=== PATIENT | female | born 1980 | race Caucasian/White ===

== ENCOUNTER 2020-04-20 08:35 | Outpatient (AMBR) | payer MEDICARE, MEDICAID, SELFPAY ==
--- NOTE | 2020-03-23 12:24 | PT.ODAYNRPT ---
PT Outpatient Daily Note Date of Service: 03/23/20 OP Daily Note Visit Reasons: cva Outpatient Physical Therapy Treatment Date: 03/23/20 Subjective: Pt feels stronger. Pt stated that she still has difficulty with steps and will like to work on it. Objective: Please see flow chart for list of ther ex performed Assessment: tolerate exercises with minimal pain Plan: Continue with PT Length of Time (minutes) of Treatment: 30 Minutes Office Procedures PT Procedures PT Date of Service: 03/23/20 Therapeutic Exercise 30 minutes: Yes
--- NOTE | 2020-03-26 11:44 | PTNOTE_ITS ---
PT Outpatient Daily Note Date of Service: 03/26/20 OP Daily Note Visit Reasons: cva Outpatient Physical Therapy Treatment Date: 03/26/20 Subjective: pt came in with no complaints and doing ok upon visit. Objective: see flow sheet. Assessment: pt ambulates with SPC. pt does leave the SPC to the side and ambulates short distances around the gym area. pt needs seated rest breaks in between the exercises. pt was able to fully step onto the step stair case with FWB on BLE. she does use the hand rails. she was able to complete both forward and lateral step ups. she did well but needs more strengthening as it fatigues her. pt also has poor balance as noted during her SLS. she was able to barely lift her RLE for a few seconds before she has to step down with it. Plan: continue POC per PT. Length of Time (minutes) of Treatment: 30 Minutes GUEST RELATIONS RECEPTIONIST Service Modifier Method I: Divide the number of min of care provided by the GUEST RELATIONS RECEPTIONIST/PAULA by the total min of care provided then multiply by 100. If greater than 11 percent modifier is required. Method II: Divide the total time of care provided to patient by 10 (round to the nearest whole number) and add 1 min. to set the minimum time requirement. If treatment total was 60 min., then 10% of 6 min Did GUEST RELATIONS RECEPTIONIST provide more than 10% of the care?: Yes PT CQ modifier applied: CQ Modifier applied Office Procedures PT Procedures PT Date of Service: 03/23/20 Therapeutic Exercise 30 minutes: Yes PT Procedures PT Date of Service: 03/26/20 Therapeutic Exercise 30 minutes: Yes
--- NOTE | 2020-03-31 15:38 | PT.ODAYNRPT ---
PT Outpatient Daily Note Date of Service: 03/31/20 OP Daily Note Visit Reasons: [facility]va Outpatient Physical Therapy Treatment Date: 03/31/20 Subjective: Pt is feeling stronger and wants to continue to progress with increase exercise reps. Pt stated that walking longer is getting easier for her. Objective: Please see flow chart for list of ther ex performed Assessment: tolerate exercises with minimal pain Plan: Continue with PT Length of Time (minutes) of Treatment: 30 Minutes Office Procedures PT Procedures PT Date of Service: 03/23/20 Therapeutic Exercise 30 minutes: Yes PT Procedures PT Date of Service: 03/26/20 Therapeutic Exercise 30 minutes: Yes PT Procedures PT Date of Service: 03/31/20 Therapeutic Exercise 30 minutes: Yes
--- NOTE | 2020-04-02 15:58 | PT.ODAYNRPT ---
PT Outpatient Daily Note Date of Service: 04/02/20 OP Daily Note Visit Reasons: cva Outpatient Physical Therapy Treatment Date: 04/02/20 Subjective: Pt doesn't trust the left leg yet. Pt still has difficulty putting weight on the legs especially with prolonged walking. Pt mention that her overall endurance is much better. Objective: Please see flow chart for list of ther ex performed Assessment: tolerate exercises; difficulty with SLS with noted imbalance after a few reps. Pt continues to excessively use left hip flexors to clear the foot. less difficulty with stairs Plan: Continue with PT Length of Time (minutes) of Treatment: 30 Minutes Office Procedures PT Procedures PT Date of Service: 03/23/20 Therapeutic Exercise 30 minutes: Yes PT Procedures PT Date of Service: 03/26/20 Therapeutic Exercise 30 minutes: Yes PT Procedures PT Date of Service: 03/31/20 Therapeutic Exercise 30 minutes: Yes PT Procedures PT Date of Service: 04/02/20 Therapeutic Exercise 30 minutes: Yes
--- NOTE | 2020-04-06 09:39 | PT.ODS1RPT ---
PT OP Progress/Discharge Note Date of Service: 04/06/20 Progress Note/DC Note Progress Note/Discharge Note: Progress Note Patient Information Visit Reasons: cva Medical Diagnosis: I63.9 Treatment Dx #1: Left UE Weakness Treatment Dx #2: Abnormal Gait Service Continue Service or Discharge: Continue Service Certification Date Certification Dates: 04/06/20 to 07/05/20 Status Subjective: Pt mention that she feels stronger and notice her endurance a lot better. Pt is walking now with and without her cane depends on her duration is when she will use the cane. Pt still notice balance issue with uneven surfaces and stairs/steps are getting easier. Pt has been able to perform light ADLs and take care of her kids with less limitation. Objective: Left Shoulder AROM Flexion: 100 deg Abduction: 95 deg External Rotation: 90 deg Internal Rotation: 60 deg Left Shoulder MMTs: grossly 3/5 Left Elbow MMTs: grossly 3+/5 Left Wrist MMTs: grossly 3+/5 Left Le MMTs: grossly 3+/5 SLS: 3 sec with use of BUE Assessment: Pt demonstrate improvement with overall mobility and strength of the left side allowing her to ambulate, perform light ADLs, chores, and lifting with less limitation. Pt also noted to have improvement with her endurance allowing her to do more exercises and reps without resting as well as performing longer activities at home with less rest. Pt has not met set goals yet and will continue to benefit from physical therapy, thank you for your referrals. Plan: Continue with PT/POC and add 8 sessions (2 x wk for 4 wks) Office Procedures PT Procedures PT Date of Service: 03/23/20 Therapeutic Exercise 30 minutes: Yes PT Procedures PT Date of Service: 03/26/20 Therapeutic Exercise 30 minutes: Yes PT Procedures PT Date of Service: 03/31/20 Therapeutic Exercise 30 minutes: Yes PT Procedures PT Date of Service: 04/02/20 Therapeutic Exercise 30 minutes: Yes PT Procedures PT Date of Service: 04/06/20 Therapeutic Activity 15 minutes: Yes Therapeutic Exercise 30 minutes: Yes
--- NOTE | 2020-04-09 10:09 | PT.ODAYNRPT ---
PT Outpatient Daily Note Date of Service: 04/09/19 OP Daily Note Visit Reasons: cva Outpatient Physical Therapy Treatment Date: 04/09/20 Subjective: Pt mention that she feels stronger and more energy to do things around the house. Pt is walking longer with less limitation. Objective: Please see flow chart for list of ther ex performed Assessment: tolerate exercises with minimal pain; overall endurance continues to improve require less rest break throughout PT session Plan: Continue with PT Length of Time (minutes) of Treatment: 30 Minutes Office Procedures PT Procedures PT Date of Service: 03/23/20 Therapeutic Exercise 30 minutes: Yes PT Procedures PT Date of Service: 03/26/20 Therapeutic Exercise 30 minutes: Yes PT Procedures PT Date of Service: 03/31/20 Therapeutic Exercise 30 minutes: Yes PT Procedures PT Date of Service: 04/02/20 Therapeutic Exercise 30 minutes: Yes PT Procedures PT Date of Service: 04/06/20 Therapeutic Activity 15 minutes: Yes Therapeutic Exercise 30 minutes: Yes PT Procedures PT Date of Service: 04/09/20 Therapeutic Exercise 30 minutes: Yes
--- NOTE | 2020-04-15 16:17 | PT.ODAYNRPT ---
PT Outpatient Daily Note Date of Service: 04/15/20 OP Daily Note Visit Reasons: cva Outpatient Physical Therapy Treatment Date: 04/15/20 Subjective: Pt's walking better and notice more energy lately. Objective: Please see flow chart for list of ther ex performed Assessment: tolerate exercises with minimal pain Plan: Continue with PT Length of Time (minutes) of Treatment: 30 Minutes Office Procedures PT Procedures PT Date of Service: 03/23/20 Therapeutic Exercise 30 minutes: Yes PT Procedures PT Date of Service: 03/26/20 Therapeutic Exercise 30 minutes: Yes PT Procedures PT Date of Service: 03/31/20 Therapeutic Exercise 30 minutes: Yes PT Procedures PT Date of Service: 04/02/20 Therapeutic Exercise 30 minutes: Yes PT Procedures PT Date of Service: 04/06/20 Therapeutic Activity 15 minutes: Yes Therapeutic Exercise 30 minutes: Yes PT Procedures PT Date of Service: 04/09/20 Therapeutic Exercise 30 minutes: Yes PT Procedures PT Date of Service: 04/15/20 Therapeutic Exercise 30 minutes: Yes
--- NOTE | 2020-04-17 09:43 | PT.ODAYNRPT ---
PT Outpatient Daily Note Date of Service: 04/17/20 OP Daily Note Visit Reasons: cva Outpatient Physical Therapy Treatment Date: 04/17/20 Subjective: Pt mention that her weakness is better. Pt wants to work more on her hand and shoulder today. Pt feels that she has some feeling now in the left hand. Objective: Please see flow chart for list of ther ex performed Assessment: tolerate exercises with minimal pain Plan: Continue with PT Length of Time (minutes) of Treatment: 30 Minutes Office Procedures PT Procedures PT Date of Service: 03/23/20 Therapeutic Exercise 30 minutes: Yes PT Procedures PT Date of Service: 03/26/20 Therapeutic Exercise 30 minutes: Yes PT Procedures PT Date of Service: 03/31/20 Therapeutic Exercise 30 minutes: Yes PT Procedures PT Date of Service: 04/17/20 Therapeutic Exercise 30 minutes: Yes PT Procedures PT Date of Service: 04/02/20 Therapeutic Exercise 30 minutes: Yes PT Procedures PT Date of Service: 04/06/20 Therapeutic Activity 15 minutes: Yes Therapeutic Exercise 30 minutes: Yes PT Procedures PT Date of Service: 04/09/20 Therapeutic Exercise 30 minutes: Yes PT Procedures PT Date of Service: 04/15/20 Therapeutic Exercise 30 minutes: Yes
--- NOTE | 2020-04-20 09:23 | PT.ODAYNRPT ---
PT Outpatient Daily Note Date of Service: 04/20/20 OP Daily Note Visit Reasons: cva Outpatient Physical Therapy Treatment Date: 04/20/20 Subjective: Pt mention that she's doing well today no concerns. Objective: Please see flow chart for list of ther ex performed Assessment: tolerate exercises with minimal pain Plan: Continue with PT Length of Time (minutes) of Treatment: 30 Minutes Office Procedures PT Procedures PT Date of Service: 03/23/20 Therapeutic Exercise 30 minutes: Yes PT Procedures PT Date of Service: 03/26/20 Therapeutic Exercise 30 minutes: Yes PT Procedures PT Date of Service: 03/31/20 Therapeutic Exercise 30 minutes: Yes PT Procedures PT Date of Service: 04/17/20 Therapeutic Exercise 30 minutes: Yes PT Procedures PT Date of Service: 04/20/20 Therapeutic Exercise 30 minutes: Yes PT Procedures PT Date of Service: 04/02/20 Therapeutic Exercise 30 minutes: Yes PT Procedures PT Date of Service: 04/06/20 Therapeutic Activity 15 minutes: Yes Therapeutic Exercise 30 minutes: Yes PT Procedures PT Date of Service: 04/09/20 Therapeutic Exercise 30 minutes: Yes PT Procedures PT Date of Service: 04/15/20 Therapeutic Exercise 30 minutes: Yes
== END 2020-04-20 23:59 | disposition home or self-care (01) ==
PROVIDERS: PCP Internal Medicine; Referring Provider Internal Medicine; Visit Provider Internal Medicine
DX: R53.1 Weakness (principal); R26.89 Other abnormalities of gait and mobility; I69.354 Hemiplegia and hemiparesis following cerebral infarction affecting left non-dominant side
CPT/HCPCS: 97110; 97530

== ENCOUNTER 2020-05-22 08:59 | Outpatient (AMBR) | payer MEDICARE, MEDICAID, SELFPAY ==
--- NOTE | 2020-05-20 10:56 | PT.ODAYNRPT ---
PT Outpatient Daily Note Date of Service: 05/20/20 OP Daily Note Visit Reasons: cva Outpatient Physical Therapy Treatment Date: 05/20/20 Subjective: Pt mention that her arms and legs are feeling stronger. Pt stated that MD found some mass in her lungs and ovary. Pt recently saw neurologist and mention that she didn't have a stroke. Objective: Please see flow chart for list of ther ex performed Assessment: less rest break noted today indicating improved overall endurance. Pt also exhibit good dynamic balance with standing exercises Plan: Continue with PT Length of Time (minutes) of Treatment: 30 Minutes Office Procedures PT Procedures PT Date of Service: 05/20/20 Therapeutic Exercise 30 minutes: Yes
--- NOTE | 2020-05-22 09:20 | PT.ODS1RPT ---
PT OP Progress/Discharge Note Date of Service: 05/22/20 Progress Note/DC Note Progress Note/Discharge Note: DC Note Patient Information Visit Reasons: cva Medical Diagnosis: I63.9 Treatment Dx #1: Left UE Weakness Treatment Dx #2: Abnormal Gait Service Continue Service or Discharge: Discharge Discharge Date: 05/22/20 Status Subjective: Pt mention that her balance is much better. Pt has been able to walk, stand, and perform chores longer with exertion. Pt also notice that her arm strength has improved allowing her to perform self care, lift, and over head motions with less difficulty. At this time Pt feels comfortable being release from care with exercises to continue at home. Objective: Left Shoulder AROM Flexion: 150 deg Abduction: 120 deg External Rotation: 90 deg Internal Rotation: 70 deg Left Shoulder MMTs: grossly 3+/5 Left Elbow MMTs: grossly 4-/5 Left Wrist MMTs: grossly 3+/5 Left LE MMTs: grossly 3+/5 SLS: 15 sec with use of BUE Assessment: Pt demonstrate improvement with left side weakness allowing her to ambulate, stand, perform chores, and recreational activities with less limitation. Pt will no longer benefit from physical therapy due to plateau towards goals. Pt was instructed on HEP last session and educated to continue exercises to maintain overall mobility. Pt performed all exercises safely, thank you for your referrals. Plan: D/C home with HEP and follow up with MD [facility] Office Procedures PT Procedures PT Date of Service: 05/20/20 Therapeutic Exercise 30 minutes: Yes PT Procedures PT Date of Service: 05/22/20 Therapeutic Exercise 30 minutes: Yes
== END 2020-06-17 23:59 | disposition home or self-care (01) ==
PROVIDERS: PCP Internal Medicine; Referring Provider Internal Medicine; Visit Provider Internal Medicine
DX: R53.1 Weakness (principal); R26.2 Difficulty in walking, not elsewhere classified
CPT/HCPCS: 97110

== ENCOUNTER → 2024-04-26 | Outpatient (CLI) | payer MEDICARE, MEDICAID, SELFPAY ==
--- NOTE | 2024-04-26 13:00 | XR_ITS ---
Examination: CT chest, without intravenous contrast. Sagittal and coronal 2-D reconstructions. Exam date and time: April 26, 2024 1256 hours Comparison January 09, 2023 INDICATIONS: Smoking history 15 years 13 mm pulmonary nodule left lower lobe on CT chest January 09, 2023 CTDI:vol (mGy) 18.5 DLP: (mGycm) 618 Technique: Multiple 3.0 mm axial sections of the chest to been obtained. Bone and lung density settings are obtained. Sagittal and coronal 2-D reconstructions have been obtained. Low dose protocols were performed. One or more of the following dose reduction techniques were used; automated exposure control, adjustment of the mA and/or KV according to patient size, use of iterative reconstruction technique. Findings: No thoracic aortic aneurysm dilatation Pulmonary artery segments are not enlarged. No paratracheal tracheobronchial or bronchopulmonary adenopathy Pulmonary nodule left lower lobe currently measures 5 mm compared to 13 mm on the prior study 4 mm pulmonary nodule right lower lobe image 190 Cirrhosis, liver nodular in contour Massive splenomegaly Absent gallbladder No pancreatic mass IMPRESSION: New 4 mm pulmonary nodule right lower lobe, recommend continued 6 month follow-up CT chest without contrast
== END | disposition home or self-care (01) ==
PROVIDERS: PCP Nurse Practitioner Family; Referring Provider Internal Medicine; Visit Provider Internal Medicine
DX: R91.1 Solitary pulmonary nodule (principal)
CPT/HCPCS: 71250

== ENCOUNTER 2024-09-11 11:45 | Day surgery (SDC) | payer MEDICARE, MEDICAID, SELFPAY ==
--- NOTE | 2024-09-10 07:23 | EKG_ITS ---
[facility] Test Date: 2024-09-10 Pat Name: ZACH KERR Department: Room: - Gender: Female Director Search: JARAD : 1980 Requested By: Jameson Simms Order Number: [id number] Reading MD: Jameson Simms Measurements Intervals [place] Rate: 83 P: 45 MT: 193 QRS: 9 QRSD: 96 T: 47 QT: 380 QTc: 447 Interpretive Statements SINUS RHYTHM WITH SINUS ARRHYTHMIA LOW QRS VOLTAGE IN PRECORDIAL LEADS [QRS DEFLECTION < 1.0 mV IN CHEST LEADS] Compared to ECG 02/16/2022 08:54:29 Low QRS voltage now present /store/S0/[id number]/ecg/[id number].pdf
[2024-09-10 10:37] LABS: HCG Qualitative,Urine Negative
[2024-09-10 10:57] LABS: Alanine Aminotransferase 23 U/L (10-49); Albumin, Serum 3.7 gm/dL (3.5-5.0); Albumin/Globulin Ratio 1.1 (1.2-2.2); Alkaline Phosphatase 105 U/L (46-116); Anion Gap 12 (7-16); Aspartate Amino Transferase 39 U/L (0-34); BUN/Creatinine Ratio 6 Ratio (12-20); Blood Urea Nitrogen < 5 mg/dL (9-23); Calcium 8.9 mg/dL (8.3-10.6); Calcium (Corrected) 9.1 mg/dL (8.5-10.1); Carbon Dioxide 26.4 mMol/L (20.0-31.0); Chloride 101 mMol/L (98-107); Creatinine (Component) 0.8 mg/dL (0.6-1.3); Globulin 3.3 gm/dL (2.3-3.5); Glucose 188 mg/dL (74-106); Osmolality,Calculated 279 (275-295); Potassium 3.6 mMol/L (3.4-5.1); Sodium 139 mMol/L (136-145); eGFR > 60 See Note
[2024-09-10 14:08] VITALS: BMI 42.0
[2024-09-11] VITALS (8 sets, daily range): BP systolic 109–148; BP diastolic 78–108; PULSE 71–91; RESP 16–20; TEMP 36.2–37.1; O2SAT 94–99; BMI 46.0
[2024-09-11] MEDS: RINGERS LACTATED 1000 ML 1,000 ML 20 ML IV (15:40)
--- NOTE | 2024-09-11 16:20 | SUR.PHASEII ---
2113 Patient arrived to recovery resting comfortably in [facility], on oxygen 4L via nasal cannula, breathing unlabored, vital signs stable, denies pain and nausea, report received from Ann Marie ROJAS
--- NOTE | 2024-09-11 16:20 | SUR.PHASEII ---
1620 Patient meets discharge criteria from recovery, awake and alert, breathing unlabored, vital signs stable, denies pain and nausea, used the restroom prior to discharge, ate a jello and drinking apple juice, able to dress herself into her clothing, discharge instructions given to patient and patients , signed discharge instructions. Patient given all her belongings prior to discharge, transported via wheelchair and left in a private vehicle.
== END 2024-09-11 17:20 | disposition home or self-care (01) ==
PROVIDERS: Anesthesiology; Referring Provider Internal Medicine Gastroenterology; Visit Provider Internal Medicine Gastroenterology
PROC: 0DJD8ZZ Inspection of Lower Intestinal Tract, Via Natural or Artificial Opening Endoscopic (ICD-10-PCS; CPT 45378; principal; 2024-09-11 14:15)
PROC: (CPT 43239; 2024-09-11 14:15)
DX: K70.30 Alcoholic cirrhosis of liver without ascites (principal); K56.699 Other intestinal obstruction unspecified as to partial versus complete obstruction; K64.9 Unspecified hemorrhoids; K64.8 Other hemorrhoids; Z01.810 Encounter for preprocedural cardiovascular examination; K63.89 Other specified diseases of intestine; I85.00 Esophageal varices without bleeding; K52.9 Noninfective gastroenteritis and colitis, unspecified; K29.70 Gastritis, unspecified, without bleeding; I86.8 Varicose veins of other specified sites
CPT/HCPCS: 45380; 36415; 80053; 81025; 93005; A4217; A4649; J7120

== ENCOUNTER → 2024-11-05 | Outpatient (CLI) | payer MEDICARE, MEDICAID, SELFPAY ==
[2024-11-05 10:25] LABS: INR 1.2 (0.9-1.3); Prothrombin Time 13.0 Seconds (9.0-12.2)
[2024-11-05 10:28] LABS: Basophils # (Auto) 0.0 Thou/mm3 (0.0-0.2); Basophils % (Auto) 1 % (0-2.5); Eosinophils # (Auto) 0.1 Thou/mm3 (0.0-0.5); Eosinophils % (Auto) 2 % (0-10); Hematocrit 30.8 % (36.0-46.0); Hemoglobin 9.6 g/dL (12.0-16.0); Immature Granulocytes Auto 0.01 Thou/mm3 (0.00-0.00); Lymphocytes # (Auto) 0.4 Thou/mm3 (1.0-4.8); Lymphocytes % (Auto) 15 % (10-50); Mean Corpuscular HGB Conc 31.2 g/dl (31.0-37.0); Mean Corpuscular Hemoglobin 24.4 pg (25.0-35.0); Mean Corpuscular Volume 78 fL (80-100); Monocytes # (Auto) 0.3 Thou/mm3 (0.0-0.8); Monocytes % (Auto) 12 % (0-12); Neutrophils # (Auto) 1.6 Thou/mm3 (1.8-7.7); Neutrophils % (Auto) 70 % (37-80); Nucleated Red Blood Cell # 0.00 Thou/mm3 (0.00-0.00); Nucleated Red Blood Cell % 0 /100 WBC (0); RDW Standard Deviation 43.9 fL (36.4-46.3); Red Blood Count 3.93 Miln/mm3 (4.00-5.20); White Blood Count 2.3 Thou/mm3 (3.6-11.0)
[2024-11-05 10:29] LABS: Platelet Count 60 Thou/mm3 (140-440)
[2024-11-05 10:35] LABS: Anion Gap 12 (7-16); BUN/Creatinine Ratio 9 Ratio (12-20); Blood Urea Nitrogen 8 mg/dL (9-23); Calcium 9.6 mg/dL (8.3-10.6); Carbon Dioxide 26.5 mMol/L (20.0-31.0); Chloride 102 mMol/L (98-107); Creatinine (Component) 0.9 mg/dL (0.6-1.3); Glucose 144 mg/dL (74-106); Osmolality,Calculated 280 (275-295); Potassium 3.9 mMol/L (3.4-5.1); Sodium 140 mMol/L (136-145); eGFR > 60 See Note
[2024-11-05 11:37] LABS: Hepatitis A Antibody IgM Non Reactive (Non React); Hepatitis B Core Antibody IgM Non Reactive (Non React); Hepatitis B Surface Antigen Non Reactive (Non React); Hepatitis C Antibody Non Reactive (Non React)
[2024-11-05 12:25] LABS: Slide Review Platelets confirmed
== END | disposition home or self-care (01) ==
LOC: SLAB 09:23
PROVIDERS: Referring Provider Internal Medicine Gastroenterology; Visit Provider Internal Medicine Gastroenterology
DX: K74.60 Unspecified cirrhosis of liver (principal)
CPT/HCPCS: 36415; 80048; 80074; 85025; 85610

== ENCOUNTER 2024-11-06 09:55 | Day surgery (SDC) | payer MEDICARE, MEDICAID, SELFPAY ==
[2024-11-05 10:38] LABS: Alanine Aminotransferase 19 U/L (10-49); Albumin, Serum 3.9 gm/dL (3.5-5.0); Albumin/Globulin Ratio 1.3 (1.2-2.2); Alkaline Phosphatase 86 U/L (46-116); Anion Gap 13 (7-16); Aspartate Amino Transferase 38 U/L (0-34); BUN/Creatinine Ratio 9 Ratio (12-20); Bilirubin,Total 1.0 mg/dL (0.3-1.2); Blood Urea Nitrogen 8 mg/dL (9-23); Calcium 9.7 mg/dL (8.3-10.6); Calcium (Corrected) 9.8 mg/dL (8.5-10.1); Carbon Dioxide 26.1 mMol/L (20.0-31.0); Chloride 101 mMol/L (98-107); Creatinine (Component) 0.9 mg/dL (0.6-1.3); Globulin 3.1 gm/dL (2.3-3.5); Glucose 143 mg/dL (74-106); Osmolality,Calculated 279 (275-295); Potassium 3.9 mMol/L (3.4-5.1); Sodium 140 mMol/L (136-145); Total Protein 7.0 gm/dL (5.7-8.2); eGFR > 60 See Note
[2024-11-05 14:33] VITALS: BMI 33.3
[2024-11-06] VITALS (9 sets, daily range): BP systolic 139–175; BP diastolic 88–107; PULSE 86–98; RESP 15–20; TEMP 36.3–36.8; O2SAT 91–100; BMI 38.9
[2024-11-06] MEDS: RINGERS LACTATED 500 ML 500 ML 20 ML IV (12:39)
[2024-11-06] MEDS: EPINEPHrine INJ 0.1 MG/ML SYRINGE 10ML 1 MG SUBMUCOSAL (13:33)
--- NOTE | 2024-11-06 13:59 | SUR.PHASEII ---
1359: Pt. AAOx4, vitals stable, breathing unlabored, no complaint of pain or nausea, no dressing in place, no active bleed noted, report recieved from Mandy ROJAS and Kody CHURCH.
--- NOTE | 2024-11-06 14:55 | SUR.PHASEII ---
1455: Pt. AAOX4, vitals stable, breathing unlabored, no complaint of pain or nausea, pt. able to pass gas, pt. tolerated sips of soda well, pt. ambulated to wheelchair with steady gait and no assist, no complications. Gave discharge instructions to the pt. and her ride, both verbalized understanding and had no further questions. Pt. left with all personal belongings.
== END 2024-11-06 14:55 | disposition home or self-care (01) ==
PROVIDERS: Anesthesiology; Referring Provider Internal Medicine Gastroenterology; Visit Provider Internal Medicine Gastroenterology
PROC: (CPT 43239; principal; 2024-11-06 11:00)
PROC: 0DJD8ZZ Inspection of Lower Intestinal Tract, Via Natural or Artificial Opening Endoscopic (ICD-10-PCS; CPT 45378; 2024-11-06 11:00)
DX: K57.30 Diverticulosis of large intestine without perforation or abscess without bleeding (principal); K74.60 Unspecified cirrhosis of liver; K64.9 Unspecified hemorrhoids; K64.8 Other hemorrhoids; E66.9 Obesity, unspecified; B17.10 Acute hepatitis C without hepatic coma
CPT/HCPCS: 45378; 36415; 80053; 81025; A4649; J0168; J2470; J3490; J7120